=== PATIENT | female | born 1955 | race Caucasian/White ===

== ENCOUNTER 2019-08-25 18:24 | Emergency (ER) | payer MEDICARE, OTHER, BC, SELFPAY ==
--- NOTE | ~2019-08-25 | XR_ITS ---
EXAMINATION: XR ribs RT 2V DATE: 08/25/2019 19:01 INDICATION: Right anterior rib pain post fall TECHNIQUE: 3 views of the right ribs were obtained. COMPARISON: None FINDINGS: No rib fractures identified. Visualized portions of the lungs are clear with no focal airspace opacit ies, pulmonary edema, pleural effusion or pneumothorax. Visualized portion of the cardiomediastinal s ilhouette is normal. Mild lumbar levocurvature. IMPRESSION: 1. No rib fracture or acute cardiopulmonary disease. Reviewed, dictated and finalized at location A.
--- NOTE | ~2019-08-25 | XR_ITS ---
EXAMINATION: XR foot LT min 3V DATE: 08/25/2019 19:02 INDICATION: Lateral left foot pain post fall TECHNIQUE: Dorsoplantar, two oblique and lateral views of the left foot were obtained. COMPARISON: None. FINDINGS: Alignment is normal. No fracture. 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 Small plantar calcaneal spur. Soft tissues are unremarkable. IMPRESSION: 1. No acute osseous abnormality. Reviewed, dictated and finalized at location A.
[2019-08-25 18:35] VITALS: BP 134/78; PULSE 60; RESP 18; TEMP 37.1; O2SAT 98
--- NOTE | 2019-08-25 18:54 | ED.GENADULT ---
HPI - General Adult General Chief complaint: Wound/Laceration Stated complaint: left ankle pain/left rib pain Time Seen by Provider: 08/25/19 18:47 Source: patient and RN notes reviewed Mode of arrival: ambulatory Limitations: no limitations History of Present Illness HPI narrative: 63-year-old female presents with right rib pain, left foot pain. Reports she was water[place] this morning, rolled her ankle and fell on a sidewalk causing immediate right rib pain. Reports the left lateral foot pain happened later in the day. Reports left lateral foot pain, right anterior rib pain. She reports rib pain worsens with breathing, twisting, bending, coughing. MD complaint: Fall Related Data Home Medications Medication Instructions Recorded Confirmed levothyroxine 100 mcg PO DAILY 08/25/19 08/25/19 lisinopril 20 mg PO DAILY 08/25/19 08/25/19 venlafaxine 75 mg PO DAILY 08/25/19 08/25/19 Allergies Allergy/AdvReac Type Severity Reaction Status Date / Time CODIENE Allergy Mild DOESN'T Uncoded 05/10/07 13:27 HELP Review of Systems Review of Systems: Narrative: CONSTITUTIONAL: Denies malaise, chills, sweats, or fever. CARDIOVASCULAR: Denies chest pain, palpitations, or edema. RESPIRATORY: Denies cough or dyspnea. SKIN: Denies bruising, redness. Reports left foot swelling MUSCULOSKELETAL: Reports right leg pain, left foot pain NEUROLOGIC: Denies numbness, weakness. All systems reviewed & are unremarkable except as noted in HPI and below PMFSH Comments At time of signature, agree with nursing past medical, surgical, social and family history. There is no relevant family history pertinent to the presenting complaint Exam Narrative: Exam Narrative: GENERAL: Well-appearing, well-nourished, and in no acute distress. HEAD: Normocephalic, atraumatic. EYES: PERRLA, conjunctivae clear NECK: Supple. CHEST: Speaks in full sentences. No respiratory distress. Equal expansion, equal breath sounds, breath sounds clear. No bruising, obvious deformity noted, tenderness near anterior ribs 6, 7, 8 HEART: Regular rate and rhythm. Normal and equal peripheral pulses. EXTREMITIES: Left foot, digits has normal strength and sensation, normal range of motion. 5/5 strength with ankle and digit flexion and extension. Mild lateral ankle edema. Normal sensation with sensitivity to light touch and pain. No open wounds, no skin tenting, no devitalized tissue or atrophy, no trophic changes, no ecchymosis, no obvious deformity, alignment normal, no point tenderness, nearby joints and structures intact. Distal pulses palpable and equal bilaterally, skin warm, dry, pink. Capillary refill less than 3 seconds. SKIN: Warm, dry, no rash. NEURO: Alert and oriented x3. PSYCH: Normal mood and affect Course Course Emergency Course: Patient is aware of diagnosis, understands and agrees to treatment plan. Anticipatory guidance given. Patient agrees to follow-up as directed and is aware of reasons to seek care at the emergency department. Portions of this record may have been created with voice recognition software Vital Signs Vital signs: Reviewed. Patient has history of hypertension Medical Decision Making MDM Narrative Medical decision making narrative: Patients injury and pain is consistent with musculoskeletal etiology. No signs of neurological or vascular compromise on exam. Compartments and tissues are soft without signs of compartment syndrome. Pain is felt appropriate for further evaluation on an outpatient basis. Imaging Data My impression: Images reviewed, interpreted by radiologist, agree, see report. Radiologist's impression: EXAMINATION: XR foot LT min 3V DATE: 08/25/2019 19:02 INDICATION: Lateral left foot pain post fall TECHNIQUE: Dorsoplantar, two oblique and lateral views of the left foot were obtained. COMPARISON: None. FINDINGS: Alignment is normal. No fracture. 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 Sma
== END 2019-08-25 19:50 | disposition home or self-care (01) ==
PROVIDERS: Emergency Provider Nurse Practitioner
DX: S20.211A Contusion of right front wall of thorax, initial encounter (principal); S99.922A Unspecified injury of left foot, initial encounter; I10 Essential (primary) hypertension; E03.9 Hypothyroidism, unspecified; F41.9 Anxiety disorder, unspecified; W18.39XA Other fall on same level, initial encounter
CPT/HCPCS: 71100; 73630; 99214; G0463

== ENCOUNTER 2022-07-25 15:50 | Emergency (ER) | payer MEDICARE, BC, OTHER, SELFPAY ==
[2022-07-25 15:58] VITALS: BP 130/79; PULSE 87; RESP 16; TEMP 36.9; O2SAT 98
--- NOTE | 2022-07-25 16:02 | ED.SKABFB ---
HPI - Skin/Abscess/Foreign Bdy General Chief complaint: Skin/Abscess/Foreign Body Stated complaint: Rash Time Seen by Provider: 07/25/22 16:02 Source: patient Mode of arrival: ambulatory Limitations: no limitations History of Present Illness HPI narrative: 66-year-old female presents with complaint of itchy rash under both breasts. Reports she has had a rash off and on for approximately 2 months. Is not using any [id number] medications to treat rash. Has not seen her primary care physician for this problem. No history of similar symptoms. All systems reviewed and negative except as noted above. Related Data Home Medications Medication Instructions Recorded Confirmed levothyroxine 100 mcg tablet 100 mcg PO DAILY 08/25/19 08/25/19 lisinopril 20 mg tablet 20 mg PO DAILY 08/25/19 08/25/19 venlafaxine 75 mg capsule,extended 75 mg PO DAILY 08/25/19 08/25/19 release 24 hr Allergies Allergy/AdvReac Type Severity Reaction Status Date / Time CODIENE Allergy Mild DOESN'T Uncoded 05/10/07 13:27 HELP Review of Systems Review of Systems: CONSTITUTIONAL: Denies fever, chills, or sweats. EYES: Denies visual changes, redness, or discharge. ENT: Denies rhinorrhea, congestion, sore throat, or otalgia. CARDIOVASCULAR: Denies chest pain, palpitations, or edema. RESPIRATORY: Denies cough or dyspnea. GASTROINTESTINAL: Denies abdominal pain, nausea, vomiting, or diarrhea. GENITOURINARY: Denies dysuria or hematuria. SKIN: Reports itchy, red rash under bilateral breasts. MUSCULOSKELETAL: Denies back pain, joint pain, or myalgia. NEUROLOGIC: Denies headache, numbness, or weakness. PSYCHIATRIC: Denies anxiety or depression. All other systems reviewed are negative, except as documented in HPI. PMFSH Comments At time of signature, agree with nursing past medical, surgical, social and family history. There is no relevant family history pertinent to the presenting complaint. Exam Narrative: GENERAL: This is a well-nourished, well-developed patient, in no apparent distress. HEAD: normocephalic, atraumatic. EYES: PERRL. Sclera clear/white. Vision is grossly intact. EARS: External ears normal NOSE: External nose normal NECK: Neck supple, non-tender without lymphadenopathy, masses or thyromegaly. CARDIOVASCULAR: Regular rate and rhythm without murmurs, gallops, or rubs. RESPIRATORY: Clear to auscultation. Breath sounds equal bilaterally. No wheezes, rales, or rhonchi. SKIN: warm, Dry, intact, good texture and turgor. erythematous rash under both breasts with shiny appearance. no drainage or swelling. NEURO: awake, alert, and oriented to person, place and time. There were no obvious focal neurologic abnormalities. EXTREMITIES: No joint tenderness, effusion, or edema noted. Course Course Level of Care: Express Care Visit Vital Signs Vital signs: Vital Signs Temperature 36.9 C 07/25/22 15:58 Pulse Rate 87 07/25/22 15:58 Respiratory Rate 16 07/25/22 15:58 Blood Pressure 130/79 07/25/22 15:58 Pulse Oximetry 98 07/25/22 15:58 Oxygen Delivery Room Air 07/25/22 15:58 Temperature 36.9 C 07/25/22 15:58 Pulse Rate 87 07/25/22 15:58 Respiratory Rate 16 07/25/22 15:58 Blood Pressure 130/79 07/25/22 15:58 Pulse Oximetry 98 07/25/22 15:58 Oxygen Delivery Room Air 07/25/22 15:58 reviewed MDM - Skin/Abscess/Foreign Bdy MDM Narrative Medical decision making narrative: Patient is aware of diagnosis, understands and agrees to treatment plan. Anticipatory guidance given. Patient agrees to follow-up as directed and is aware of reasons to seek care at the emergency department. Portions of this record may have been created with voice recognition software Discharge Plan Discharge Clinical Impression: Yeast infection of the skin Patient Disposition: Home, Self-Care Condition: Stable Instructions: Skin Yeast Infection (ED) Additional Instructions: Wash under b
== END 2022-07-25 16:13 | disposition home or self-care (01) ==
PROVIDERS: Emergency Provider Nurse Practitioner Family
DX: B37.2 Candidiasis of skin and nail (principal); I10 Essential (primary) hypertension; E03.9 Hypothyroidism, unspecified; F41.9 Anxiety disorder, unspecified
CPT/HCPCS: 99213; G0463